=== PATIENT | female | born 1980 | race Two or more races ===

== ENCOUNTER 2024-03-11 14:55 | Emergency (ER) | payer MEDICAID, SELFPAY ==
[2024-03-11 15:42] VITALS: BP 157/89; PULSE 96; RESP 18; TEMP 37; O2SAT 95; BMI 27.1
--- NOTE | 2024-03-11 16:28 | EDNOTE_ITS ---
ED General RME/HPI General Chief complaint: General Adult/Misc Complain Stated complaint: NUMBNESS TO LEFT CHEEK POST PROCEDURE 3 WKG AGO Time Seen by Provider: 03/11/24 15:11 Arrival date/time: 03/11/24 14:55 Limitations: language barrier (Telemetry office services specialist utilized.) RME / HPI RME / HPI narrative: 44-year-old female presents with left sided cheek numbness x 3 days. She reports having a facelift procedure done in [place] x 3 weeks ago during which time they placed a thread from the bottom of her cheek to above her ear internally. Denies tingling, change in speech, visual changes, headache, fever, chills, redness at surgical site, discharge from surgical site. Denies facial droop. She is requesting that we remove the internal sutures at this time. Onset (ago): day(s) Location: face Radiation: non-radiation Severity: moderate Quality: other (Numbness.) Consistency: constant Associated symptoms: denies other symptoms Treatments prior to arrival: none Related Data Previous Rx's ?Medication ?Instructions ?Recorded cyclobenzaprine 10 mg tablet 10 mg PO TID #14 tabs 01/11/21 meloxicam 7.5 mg tablet 7.5 mg PO QDAY #10 tabs 01/11/21 alprazolam 0.5 mg tablet (Xanax) 0.5 mg PO BID PRN anxiety #10 tabs 03/02/23 tramadol 50 mg tablet 50 mg PO BID PRN pain #10 tabs 03/02/23 ibuprofen 800 mg tablet 800 mg PO Q8H PRN pain #14 tabs 03/11/24 prednisone 50 mg tablet 50 mg PO QDAY #5 tabs 03/12/24 valacyclovir 1 gram tablet 1,000 mg PO BID #10 tabs 03/12/24 (Valtrex) Allergies Allergy/AdvReac Type Severity Reaction Status Date / Time No Known Allergies Allergy Verified 03/21/24 14:53 Review of Systems Constitutional Constitutional: Denies excessive sweating, Denies fever(s) and Denies headache(s) Eyes Eyes: Denies blurry vision, Denies change in vision and Denies loss of vision ENT Ears, Nose, Mouth, and Throat: Denies abnormal hearing, Denies dizziness, Denies otalgia, Reports facial pain (numbness left side ), Denies headache(s), Denies mouth pain and Denies neck pain Cardiovascular Cardiovascular: Denies chest pain and Denies leg edema Respiratory Respiratory: Denies cough and Denies wheezing Gastrointestinal Gastrointestinal: Denies nausea and Denies vomiting Musculoskeletal Musculoskeletal: Denies back pain, Denies neck pain, Denies stiffness and Denies tingling Neurologic Neurologic: Denies abnormal hearing, Denies abnormal movements, Denies abnormal speech, Denies behavioral changes, Denies confusion, Denies dizziness, Denies headache(s), Denies lack of coordination, Denies loss of vision, Denies memory loss and Denies tingling Psychiatric Psychiatric: Denies behavioral changes, Denies confusion and Denies memory loss Endocrine Endocrine: Denies excessive sweating Allergic/Immunologic Allergic/Immunologic: Denies wheezing Past Medical History Past Medical History NEUROLOGIC: Negative Neurological Disorders CARDIAC: Negative Cardiac Disorders or Congestive Heart Failure RESPIRATORY: Negative Chronic Obstructive Pulmonary Disease (COPD) GASTROINTESTINAL: Negative Gastrointestinal Disorders or Colorectal Cancer GENITOURINARY: Negative Genitourinary Disorders, Renal Disease or Prostate Cancer REPRODUCTIVE: Negative Breast Cancer or Pelvic Inflammatory Disease MUSCULOSKELETAL: Positive Musculoskeletal Disorders, Arthritis and Fractures; Negative Bone Cancer ENDOCRINE: Negative Endocrine Disorders, Diabetes Mellitus Type 1 or Diabetes Mellitus Type 2 HEMATOLOGIC: Positive Blood Disorders and Leukemia PSYCHO/SOCIAL: Positive Anxiety OTHER HISTORY: Positive Hospitalization, Blood Transfusions, Chemotherapy and Cancer; Negative Autoimmune Disease, Developmental Delay, Blood Transfusion Reaction, Anesthesia Reactions, Organ Transplant, Radiation Therapy, MRSA, Chicken Pox, Measles, Mumps, Clostridium Difficile, Breast Cancer, Cervical Cancer, Colorectal Cancer, Lung Cancer, Ovarian Cancer or Prostate Cancer Family History FAMILY HISTORY: Positive Family Cancer; Negative Family Psychiatric Problems, Family Respiratory Disorders, Family Cardiac Disorders, Family Gastrointestinal Problems, Family Surgery or Family Anesthesia Reaction Surgical History SURGICAL: Negative Endocrine Surgery, Ear Surgery, Abdominal Surgery, Nephrectomy, Joint Replacement, Neurologic Surgery, Mastectomy, Section or Organ Transplant Social History SMOKING STATUS: Never smoker SECOND HAND EXPOSURE: No SUBSTANCE USE: does not use ED Exam General Limitations: Present language barrier (Telemetry office services specialist utilized.) General appearance: Present alert and in no apparent distress Head Head exam: Present atraumatic Eye Eye exam: Present normal appearance, PERRL and EOMI; Absent miosis, mydriasis or periorbital swelling ENT ENT exam: Present normal oropharynx, mucous membranes moist and TM's normal bilaterally Neck Neck exam: Present normal inspection, full ROM and trachea midline Chest Chest inspection: Present normal inspection and symmetric chest wall rise Respiratory Respiratory exam: Present normal lung sounds bilaterally; Absent respiratory distress or wheezes Cardiovascular Cardiovascular exam: Present regular rate, +S1 and +S2 Abdominal Exam Abdominal exam: Present soft; Absent distention Extremities Exam Extremities exam: Present normal inspection, full ROM and normal capillary refill Neurological Exam Neurological exam: Present alert, oriented X3 and normal gait; Absent motor sensory deficit Expanded Neurological Exam Patient oriented to: Present person, place and time Speech: Present fluid speech Cranial nerves: Normal: EOM function (II, III, IV, ), facial sensation (V), facial palsy (VII), spinal accessory function (XI) and tongue deviation (XII) Cerebellar function: Present normal gait Motor strength - LUE: 5/5 Motor strength - RUE: 5/5 Motor strength - LLE: 5/5 Motor strength - RLE: 5/5 Psychiatric Psychiatric exam: Present normal affect Skin Skin exam: Present warm, dry and normal color Course Quality Measures none Orders Category Date Time Status Ketorolac Inj [Toradol Inj] Med 03/11/24 16:30 Discontinued 30 mg IM X1 ONE Vital Signs Vital signs: Vital Signs Temperature 98.6 F 03/11/24 15:42 Pulse Rate 96 03/11/24 15:42 Respiratory Rate 18 03/11/24 15:42 Blood Pressure 157/89 H 03/11/24 15:42 Pulse Oximetry (%) 95 03/11/24 15:42 Oxygen Delivery Method Room Air 03/11/24 15:42 Pulse ox 95% on room air, within normal limits. [facility] Patient data External records reviewed:: [facility] [place] previous records Clinical information provided by:: patient Social determinants that could affect healthcare access:: none Patient has the following chronic illnesses:: None reported. How is presenting disease/condition affected by chronic disease/condition?: no chronic disease Evaluation data The following diagnostics were reviewed and interpreted by me:: other (specify) Lab and/or radiology exams considered but not ordered:: Considered not ordered. Interpretation Summary: Considered not ordered. Medications Medications considered but not ordered:: Rx given. Medication administrations:: Medication Administration History Discontinued Medications Ketorolac Tromethamine (Ketorolac Inj 60 Mg/2 Ml Vial) 30 mg IM X1 ONE Stop: 03/11/24 16:31 Last Admin: 03/11/24 16:45 Dose: 30 mg Documented By: LEOPOLDO Rx given. Consultations Consultation(s) initiated? (list below): No Diagnosis Differential Diagnosis ED Complaint MDM: CVA, postsurgical complication, Hickey's palsy Most likely diagnosis given after review of the tests above:: Postsurgical complication. Admission Indicated Admission indicated?: not indicated Explain why admission is indicated or not indicated:: Patient with stable vital signs and no neurodeficit on examination. Numbness is likely complication of facial surgery procedure, for which the patient needs to follow-up with her plastic surgeon. Vital signs reassuring that this is not a surgical site infection. Patient stable and appropriate for outpatient follow- up. Admission Request Was there a request for admission?: No Disposition Plan Disposition Plan: Discharge Discharge Attestation Discharge Attestation: The patient and all family members were given an opportunity to ask questions and understood the discharge instructions. Discharge instructions specifically effects, indications for sooner follow up or return to the emergency department, and the expected course of current diagnosis. Patient condition: Stable Medical Decision Making MDM Narrative MDM Narrative: 44-year-old female presents with left sided facial numbness x 3 weeks in the setting of recent facelift procedure done x 1 month ago in [place]. She reports she is unable to get in contact with her plastic surgeon at this time. Vital signs reassuring. No neurodeficits on examination but patient grimacing with apparent internal pulling when smiling on the left side. No decrease sensation and forehead creases intact bilateral forehead, pointing away from Hickey's palsy at this time therefore steroid treatment deferred at this time.. No facial drooping with no focal neurodeficits therefore CT head was not obtained. Vital signs stable therefore labs were not ordered given surgical site with no erythema or discharge so less concern for infection. This is very likely a complication of her surgery and she is requesting that we remove sutures, however I discussed with her extensively that her follow-up would need to be with the plastic surgeon so as not to complicate surgical site. Patient was given a shot of Toradol with some improvement in her left sided facial discomfort. Ultimately patient was discharged home with plan to follow-up with her plastic surgeon's office and ask for a local referral if she is unable to contact her surgeon. Patient stable at time of discharge. Differential Diagnosis Differential Diagnosis: CVA, postsurgical complication, Hickey's palsy Discharge Plan Plan Patient Disposition: HOME (Self Care) Disposition Comment: stable Prescriptions/Referrals Prescriptions/Med Rec: New ibuprofen 800 mg tablet 800 mg PO Q8H PRN (Reason: pain) Qty: 14 0RF No Action cyclobenzaprine 10 mg tablet 10 mg PO TID Qty: 14 0RF meloxicam 7.5 mg tablet 7.5 mg PO QDAY Qty: 10 0RF tramadol 50 mg tablet 50 mg PO BID PRN (Reason: pain) Qty: 10 0RF alprazolam [Xanax] 0.5 mg tablet 0.5 mg PO BID PRN (Reason: anxiety) Qty: 10 0RF valacyclovir [Valtrex] 1 gram tablet 1,000 mg PO BID Qty: 10 0RF prednisone 50 mg tablet 50 mg PO QDAY Qty: 5 0RF Problem List Clinical Impression: Facial discomfort Patient/Caregiver Discharge Instructions Other Activity Instructions:: Follow-up with plastic surgeon in [place] as discussed. Ask for referral to local plastic surgeon if he continues to be unavailable for the next several weeks. Take ibuprofen as needed for facial discomfort. Return to the ED if you develop fever, spreading redness, chills, nausea, difficulty breathing, or worsening or change of symptoms. Education Materials: Self-Care for Headaches Print Language: Bulgarian Stand Alone Forms: Leighann Award Info., Patient Portal Info Letter PA/[place]IDENT OF [place] Supervising Physician PA/[place]IDENT [place] Supervising Physician: Dr. Pritchard
[2024-03-11] MEDS: KETOROLAC INJ 60 MG/2 ML VIAL 30 MG IM (16:45)
== END 2024-03-11 17:53 | disposition home or self-care (01) ==
PROVIDERS: Emergency Provider Emergency Medicine; PCP Family Medicine
DX: R20.0 Anesthesia of skin (principal)
CPT/HCPCS: 96372; 99283; J1885

== ENCOUNTER 2024-03-12 18:48 | Emergency (ER) | payer MEDICAID, SELFPAY ==
[2024-03-12 19:02] VITALS: BP 157/80; PULSE 116; RESP 18; TEMP 37.2; O2SAT 96; BMI 24.9
--- NOTE | 2024-03-12 19:12 | XR_ITS ---
Examination: CT brain head without contrast. 2-D sagittal coronal reconstructions Date and time of exam:March 12, 2024 at 2032 hrs. Indications: Onset facial paralysis left-sided facial weakness left-sided facial numbness today CTDI: vol (mGy):47.3 DLP: (mGycm):918 Technique: Multiple CT axial sections of the brain have been obtained, 5 mm slice thickness. Contrast has not been administered. 2-D sagittal, coronal reconstructions have been obtained Low dose protocols were performed. One or more of the following dose reduction techniques were used; automated exposure control, adjustment of the mA and/or KV according to patient size, use of iterative reconstruction technique. Findings: No significant ventricular enlargement. Intra-axial or extra-axial hemorrhage density is not seen. No mass effect or midline shift Basal cisterns are not remarkable. Fourth ventricle is midline. Cranial vault intact. Impression: Negative for acute hemorrhage, mass effect or midline shift Brain MRI follow-up would best assess for demyelinating disease, acute ischemic change
[2024-03-12 20:21] LABS: Collection Type, Urine Clean Catch
[2024-03-12 20:43] LABS: Bacteria,Urine Rare; Bilirubin,Urine Negative (Negative); Blood,Urine Negative (Negative); Clarity,Urine Clear (Clear/Hazy); Color,Urine Lt-Yellow (Lt Yel-Yel); Glucose, Urine 4+ (Negative); Ketones,Urine Trace (Negative); Leukocyte Esterase,Urine Positive (Negative); Nitrite,Urine Negative (Negative); Protein,Urine Trace (Neg - Trace); RBC,Urine 3 /hpf (0-3); Squamous Epithelial Cell,Urine 5 /hpf (0-5); Urobilinogen,Urine Negative mg/dL (0.0-1.0); WBC,Urine 8 /hpf (0-5)
[2024-03-12 20:44] LABS: HCG Qualitative,Urine Negative
--- NOTE | 2024-03-12 21:58 | PD.EDNEURO ---
Neuro Symptoms Deficit-RME/HPI General Chief Complaint: Neuro Symptoms/Deficit Stated Complaint: LEFT SIDED FACIAL PARALYSIS SINCE 03/12/24 Time Seen by Provider: 03/12/24 19:00 Arrival date/time: 03/12/24 18:48 RME / HPI RME / HPI Narrative: This section includes all my notes and documentations, including HPI, PE, and ED course. Sanford Irvin MD HPI: 44-year-old female here with about a week history of left-sided facial weakness and numbness and tingling. Slight headache and dizziness. No speech or visual impairment. No loss of power in arms or legs. No chest pain or shortness of breath. No other complaints. ROS: Respiratory: negative except as documented in HPI. Gastrointestinal: negative except as documented in HPI. Genitourinary: negative except as documented in HPI. Musculoskeletal: negative except as documented in HPI. Skin: negative except as documented in HPI. Neurological: negative except as documented in HPI. Physical Exam: General: Alert and oriented. Left facial droop noted, including the forehead. Eyes: Conjunctivae and lids clear. EOMI. PERRL. ENT: No nasal congestion. Pharynx normal. Tympanic membrane normal bilaterally. Neck: Supple. No carotid bruit. No JVD. Heart: RRR. Lungs: No respiratory distress. Good air movement. No rhonchi, wheezing, rales. Skin: Warm and dry. Neuro: Alert and oriented X 3. Cranial Nerves II-XII grossly intact. No peripheral motor deficits. I reviewed all diagnostic test results. My review of the head CT report is no acute findings. Urine negative. Normal UA. At this point, diagnoses include Hickey's palsy. Treatment here included oral prednisone and oral acyclovir. Recommended supportive care. Based on my best medical judgment, made decision no further evaluation or treatment indicated at this time. Patient understands and agrees to the discharge instructions customized and printed, see below. Discharge Instructions from Dr. Irvin: --After evaluation, there is no stroke.? 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 --Hickey's palsy is Inflammation of the facial nerves one side which can cause paralysis and/or numbness/tingling.? --The cause of the nerve inflammation is not known.? Virus infection and stress are possibilities. --Take Prednisone and Valtrex as prescribed.? This can shorten the course. --See a private doctor on 03/13/2024. Ask to help until you are completely better. If needed, ask for help with more investigation not available here. Such as MRI imaging of the brain and referral to see neurologist. --Seek immediate medical care with speech impairment, loss of power in arms or legs, or with any concerns.? Sanford Irvin MD Related Data Previous Rx's ?Medication ?Instructions ?Recorded cyclobenzaprine 10 mg tablet 10 mg PO TID #14 tabs 01/11/21 meloxicam 7.5 mg tablet 7.5 mg PO QDAY #10 tabs 01/11/21 alprazolam 0.5 mg tablet (Xanax) 0.5 mg PO BID PRN anxiety #10 tabs 03/02/23 tramadol 50 mg tablet 50 mg PO BID PRN pain #10 tabs 03/02/23 ibuprofen 800 mg tablet 800 mg PO Q8H PRN pain #14 tabs 03/11/24 prednisone 50 mg tablet 50 mg PO QDAY #5 tabs 03/12/24 valacyclovir 1 gram tablet 1,000 mg PO BID #10 tabs 03/12/24 (Valtrex) Allergies Allergy/AdvReac Type Severity Reaction Status Date / Time No Known Allergies Allergy Verified 03/12/24 18:51 Course Quality Measures none Orders Category Date Time Status CT head/brain wo con Stat Exams 03/12/24 19:12 Completed HCG Qualitative,Urine Stat Lab 03/12/24 19:14 Completed UA [Urinalysis] Stat Lab 03/12/24 19:14 Completed Acyclovir [Zovirax] Med 03/12/24 21:20 Discontinued 800 mg PO X1 ONE predniSONE Med 03/12/24 21:20 Discontinued 60 mg PO X1 ONE Vital Signs Vital signs: Vital Signs Temperature 98.9 F 03/12/24 19:02 Pulse Rate 116 H 03/12/24 19:02 Respiratory Rate 18 03/12/24 19:02 Blood Pressure 157/80 H 03/12/24 19:02 Pulse Oximetry (%) 96 03/12/24 19:02 Oxygen Delivery Method Room Air 03/12/24 19:02 Neuro Symptoms / Deficit Patient data External records reviewed:: None Clinical information provided by:: patient Social determinants that could affect healthcare access:: none Patient has the following chronic illnesses:: None How is presenting disease/condition affected by chronic disease/condition?: no chronic disease Evaluation data The following diagnostics were reviewed and interpreted by me:: lab results and radiology exam(s) Lab and/or radiology exams considered but not ordered:: None Interpretation Summary: Hickye's palsy Medications / Prescriptions Medications or Prescriptions considered but not ordered:: None Medication administrations:: Medication Administration History Discontinued Medications Acyclovir (Acyclovir 800 Mg Tablet) 800 mg PO X1 ONE Stop: 03/12/24 21:21 Prednisone (Prednisone 20 Mg Tablet) 60 mg PO X1 ONE Stop: 03/12/24 21:21 Prednisone acyclovir Consultations Consultation(s) initiated? (list below): No Diagnosis Neuro Differential Diagnosis: convulsions, subarachnoid hemorrhage, cerebrovascular accident and transient cerebral ischemia Most likely diagnosis given after review of the tests above:: Hickey's palsy Admission Indicated Admission indicated?: not indicated Explain why admission is indicated or not indicated:: Admission criteria not met Admission Request Was there a request for admission?: No Disposition Plan Disposition Plan: Discharge Discharge Attestation Discharge Attestation: The patient and all family members were given an opportunity to ask questions and understood the discharge instructions. Discharge instructions specifically effects, indications for sooner follow up or return to the emergency department, and the expected course of current diagnosis. Patient condition: Stable Discharge Plan Plan Patient Disposition: HOME (Self Care) Prescriptions/Referrals Prescriptions/Med Rec: New valacyclovir [Valtrex] 1 gram tablet 1,000 mg PO BID Qty: 10 0RF prednisone 50 mg tablet 50 mg PO QDAY Qty: 5 0RF No Action cyclobenzaprine 10 mg tablet 10 mg PO TID Qty: 14 0RF meloxicam 7.5 mg tablet 7.5 mg PO QDAY Qty: 10 0RF tramadol 50 mg tablet 50 mg PO BID PRN (Reason: pain) Qty: 10 0RF alprazolam [Xanax] 0.5 mg tablet 0.5 mg PO BID PRN (Reason: anxiety) Qty: 10 0RF ibuprofen 800 mg tablet 800 mg PO Q8H PRN (Reason: pain) Qty: 14 0RF Referrals: Lynne Justice PA-C [Primary Care Provider] - In 1 week Problem List Clinical Impression: Hickey's palsy Patient/Caregiver Discharge Instructions Discharge Activity: activity as tolerated Education Materials: ED Hickey's Palsy Additional Instructions: Discharge Instructions from Dr. Irvin: --After evaluation, there is no stroke.? 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 --Hickey's palsy is Inflammation of the facial nerves one side which can cause paralysis and/or numbness/tingling.? --The cause of the nerve inflammation is not known.? Virus infection and stress are possibilities. --Take Prednisone and Valtrex as prescribed.? This can shorten the course. --See a private doctor on 03/13/2024. Ask to help until you are completely better. If needed, ask for help with more investigation not available here. Such as MRI imaging of the brain and referral to see neurologist. --Seek immediate medical care with speech impairment, loss of power in arms or legs, or with any concerns.? Print Language: [place] Stand Alone Forms: Leighann Award Info., Work/School Release, Patient Portal Info Letter
[2024-03-12] MEDS: predniSONE 20 MG TABLET 60 MG PO (22:12)
[2024-03-12] MEDS: ACYCLOVIR 800 MG TABLET PO (22:12)
== END 2024-03-12 22:15 | disposition home or self-care (01) ==
PROVIDERS: Emergency Provider Emergency Medicine; PCP Physician Assistant
DX: G51.0 Bell's palsy (principal)
CPT/HCPCS: 70450; 81001; 81025; 99284; J7512; A9270

== ENCOUNTER 2024-03-21 14:51 | Emergency (ER) | payer MEDICAID, SELFPAY ==
[2024-03-21 15:10] VITALS: BP 139/86; PULSE 88; RESP 18; TEMP 36.9; O2SAT 99; BMI 28.1
--- NOTE | 2024-03-21 16:49 | PD.EDHA ---
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 presents emerged department complaints of headache and facial palsy Limitations: no limitations Related Data Previous Rx's ?Medication ?Instructions ?Recorded cyclobenzaprine 10 mg tablet 10 mg PO TID #14 tabs 01/11/21 meloxicam 7.5 mg tablet 7.5 mg PO QDAY #10 tabs 01/11/21 alprazolam 0.5 mg tablet (Xanax) 0.5 mg PO BID PRN anxiety #10 tabs 03/02/23 tramadol 50 mg tablet 50 mg PO BID PRN pain #10 tabs 03/02/23 ibuprofen 800 mg tablet 800 mg PO Q8H PRN pain #14 tabs 03/11/24 prednisone 50 mg tablet 50 mg PO QDAY #5 tabs 03/12/24 valacyclovir 1 gram tablet 1,000 mg PO BID #10 tabs 03/12/24 (Valtrex) ketorolac 10 mg tablet 10 mg PO TID PRN pain 3 days #10 03/21/24 tabs Allergies Allergy/AdvReac Type Severity Reaction Status Date / Time No Known Allergies Allergy Verified 03/21/24 14:53 Review of Systems Review of Systems Systems Reviewed: All systems reviewed, normal except as documented Constitutional Constitutional: Reports system reviewed and no additional complaints, except as documented, Denies fever(s) and Reports headache(s) Eyes Eyes: Reports system reviewed and no additional complaints, except as documented and Denies blurry vision ENT Ears, Nose, Mouth, and Throat: Reports system reviewed and no additional complaints, except as documented and Reports headache(s) Cardiovascular Cardiovascular: Reports system reviewed and no additional complaints, except as documented, Denies chest pain and Denies dyspnea Respiratory Respiratory: Reports system reviewed and no additional complaints, except as documented, Denies chest congestion, Denies cough and Denies dyspnea Gastrointestinal Gastrointestinal: Reports system reviewed and no additional complaints, except as documented and Denies abdominal pain Musculoskeletal Musculoskeletal: Denies abnormal gait Integumentary/Breasts Skin/Breast: Reports system reviewed and no additional complaints, except as documented and Denies rash Neurologic Neurologic: Reports system reviewed and no additional complaints, except as documented, Reports as per HPI, Denies abnormal gait, Reports headache(s) and Reports other (Left-sided facial palsy) Past Medical History Past Medical History NEUROLOGIC: Negative Neurological Disorders CARDIAC: Negative Cardiac Disorders or Congestive Heart Failure RESPIRATORY: Negative Chronic Obstructive Pulmonary Disease (COPD) GASTROINTESTINAL: Negative Gastrointestinal Disorders or Colorectal Cancer GENITOURINARY: Negative Genitourinary Disorders, Renal Disease or Prostate Cancer REPRODUCTIVE: Negative Breast Cancer or Pelvic Inflammatory Disease MUSCULOSKELETAL: Positive Musculoskeletal Disorders, Arthritis and Fractures; Negative Bone Cancer ENDOCRINE: Negative Endocrine Disorders, Diabetes Mellitus Type 1 or Diabetes Mellitus Type 2 HEMATOLOGIC: Positive Blood Disorders and Leukemia PSYCHO/SOCIAL: Positive Anxiety OTHER HISTORY: Positive Hospitalization, Blood Transfusions, Chemotherapy and Cancer; Negative Autoimmune Disease, Developmental Delay, Blood Transfusion Reaction, Anesthesia Reactions, Organ Transplant, Radiation Therapy, MRSA, Chicken Pox, Measles, Mumps, Clostridium Difficile, Breast Cancer, Cervical Cancer, Colorectal Cancer, Lung Cancer, Ovarian Cancer or Prostate Cancer Family History FAMILY HISTORY: Positive Family Cancer; Negative Family Psychiatric Problems, Family Respiratory Disorders, Family Cardiac Disorders, Family Gastrointestinal Problems, Family Surgery or Family Anesthesia Reaction Surgical History SURGICAL: Negative Endocrine Surgery, Ear Surgery, Abdominal Surgery, Nephrectomy, Joint Replacement, Neurologic Surgery, Mastectomy, Section or Organ Transplant Social History SMOKING STATUS: Never smoker SECOND HAND EXPOSURE: No SUBSTANCE USE: does not use ED Exam General Limitations: Present no limitations General appearance: Present alert and in no apparent distress Head Head exam: Present atraumatic, normocephalic and normal inspection Eye Eye exam: Present normal appearance, PERRL and EOMI ENT ENT exam: Present normal exam, normal oropharynx and mucous membranes moist Neck Neck exam: Present normal inspection, full ROM and trachea midline Chest Chest inspection: Present normal inspection and symmetric chest wall rise Respiratory Respiratory exam: Present normal lung sounds bilaterally Cardiovascular Cardiovascular exam: Present regular rate, normal rhythm and normal heart sounds Abdominal Exam Abdominal exam: Present soft and normal bowel sounds Extremities Exam Extremities exam: Present normal inspection and full ROM Back Exam Back exam: Present normal inspection and full ROM Neurological Exam Neurological exam: Present alert, oriented X3, CN II-XII intact, normal gait and reflexes normal; Absent motor sensory deficit Psychiatric Psychiatric exam: Present other (Stress); Absent depressed, agitated, homicidal ideation or suicidal ideation Skin Skin exam: Present warm, dry, intact and normal color; Absent rash Course Quality Measures none Orders Category Date Time Status Consult to Neurology / Tele-Neurology Stat Cons 03/21/24 15:30 Active Ketorolac Inj [Toradol Inj] Med 03/21/24 16:40 Discontinued 30 mg IM X1 ONE Vital Signs Vital signs: Vital Signs Temperature 98.5 F 03/21/24 15:10 Pulse Rate 88 03/21/24 15:10 Respiratory Rate 18 03/21/24 15:10 Blood Pressure 139/86 H 03/21/24 15:10 Pulse Oximetry (%) 99 03/21/24 15:10 Oxygen Delivery Method Room Air 03/21/24 15:10 O2 saturation 99% room air within normal limits Headache MDM Narrative MDM Narrative:: 44-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 De Jesus was completed with patient felt the patient could be given Toradol and follow-up on an outpatient basis no further suggestions were made at this point she reports she can continue taking her gabapentin at home Patient discharged home in no distress to follow-up with primary care doctor in the next 24 to 48 hours and for any worsening symptoms to return to the ER immediately Patient data External records reviewed:: [facility] previous records Clinical information provided by:: patient Social determinants that could affect healthcare access:: none Patient has the following chronic illnesses:: See history How is presenting disease/condition affected by chronic disease/condition?: uneffected by Evaluation data The following diagnostics were reviewed and interpreted by me:: other (specify) (N/A) Lab and/or radiology exams considered but not ordered:: N/A Interpretation Summary: N/A Medications / Prescriptions Medications or Prescriptions considered but not ordered:: Given Medication administrations:: Medication Administration History Discontinued Medications Ketorolac Tromethamine (Ketorolac Inj 30 Mg/Ml Vial) 30 mg IM X1 ONE Stop: 03/21/24 16:41 Last Admin: 03/21/24 16:50 Dose: 30 mg Documented By: OA Given Consultations Consultation(s) initiated? (list below): Yes Consultation #1 (Physician, Specialty, Details): Dr De Jesus Diagnosis Differential diagnosis headache: migraine, tension headache, subarachnoid hemorrhage and headache Most likely diagnosis given after review of the tests above:: Headache Admission Indicated Admission indicated?: not indicated Admission Request Was there a request for admission?: No Disposition Plan Disposition Plan: Discharge Discharge Attestation Discharge Attestation: The patient and all family members were given an opportunity to ask questions and understood the discharge instructions. Discharge instructions specifically effects, indications for sooner follow up or return to the emergency department, and the expected course of current diagnosis. Patient condition: Stable Discharge Plan Plan Patient Disposition: HOME (Self Care) Disposition Comment: Stable Prescriptions/Referrals Prescriptions/Med Rec: New ketorolac 10 mg tablet 10 mg PO TID PRN (Reason: pain) 3 Days Qty: 10 0RF No Action cyclobenzaprine 10 mg tablet 10 mg PO TID Qty: 14 0RF meloxicam 7.5 mg tablet 7.5 mg PO QDAY Qty: 10 0RF tramadol 50 mg tablet 50 mg PO BID PRN (Reason: pain) Qty: 10 0RF alprazolam [Xanax] 0.5 mg tablet 0.5 mg PO BID PRN (Reason: anxiety) Qty: 10 0RF ibuprofen 800 mg tablet 800 mg PO Q8H PRN (Reason: pain) Qty: 14 0RF valacyclovir [Valtrex] 1 gram tablet 1,000 mg PO BID Qty: 10 0RF prednisone 50 mg tablet 50 mg PO QDAY Qty: 5 0RF Problem List Clinical Impression: Hickey's palsy Patient/Caregiver Discharge Instructions Education Materials: ED Hickey's Palsy Additional Instructions: Please follow up with your primary care doctor in the next 24-48hrs for any worsening symptoms return here immediately Print Language: Kenyan Stand Alone Forms: Leighann Award Info., Patient Portal Info Letter MD Attestation Attestation The patient was seen by the midlevel practitioner. I, the co-signing physician, was present during the entire ER visit. While I did not physically examine the patient, I was available for consultation as needed.
[2024-03-21] MEDS: KETOROLAC INJ 30 MG/ML VIAL IM (16:50)
--- NOTE | 2024-03-21 23:53 | PD.VCONSULT1 ---
Telemedicine visit statement This visit was conducted with the use of interactive audio and video telecommunications system that permits real time communication between the patient and the provider. Patient's verbal consent for virtual visit was obtained on 03/21/24 at 2353. Meds Home Medications and Allergies Allergies Allergy/AdvReac Type Severity Reaction Status Date / Time No Known Allergies Allergy Verified 03/21/24 14:53 Virtual exam Vital Signs Temp Pulse Resp BP Pulse Ox O2 Del Method 98.5 F 88 18 139/86 H 99 Room Air 03/21/24 15:10 03/21/24 15:10 03/21/24 15:10 03/21/24 15:10 03/21/24 15:10 03/21/24 15:10
== END 2024-03-21 17:23 | disposition home or self-care (01) ==
PROVIDERS: Emergency Provider Emergency Medicine; PCP Family Medicine
DX: G51.0 Bell's palsy (principal)
CPT/HCPCS: 96372; 99283; J1885

== ENCOUNTER 2024-05-24 09:24 | Emergency (ER) | payer MEDICAID, SELFPAY ==
--- NOTE | 2024-05-24 | XR_ITS ---
Examinations: MRI Brain without intravenous contrast. MRI brain with intravenous contrast MRI orbits without intravenous contrast MRI orbits with intravenous contrast MRA neck with intravenous contrast Date and time of exam: May 24, 2024 1521 hrs. Indications: Headaches deviations above the left eye upwards and left exophthalmos 5 days Technique: Multiple axial and sagittal images of the brain orbits have been obtained Siemens high-resolution 1.5 Cyndi short bore scanner is utilized. Sagittal sections, T1-weighted, TR 500, TE 14 Axial sections proton density and T2-weighted, TR 3,000, TE 34, TR 3,000, TE 91 Inversion recovery axial images, TR 9,260, TE 111, TI 2,500 Diffusion weighted images, axial sections, TR 4,800, TE 128, B value 1,000 Axial sections, ADC map, TR 4,800, TE 128. Contrast images have been obtained post intravenous 14 cc Gadolinium. T1-weighted axial and coronal images post contrast have been obtained. Findings: Very limited axial coronal sequences Ventricles are not enlarged No mass effect upon the ventricular system Diffusion-weighted images demonstrate no focus of restricted diffusion Left exophthalmos although no retro-orbital lesion Postcontrast images demonstrates no abnormal enhancing optic globe or retro-orbital lesions The abdominal musculature is not thickened The pituitary is not enlarged There is no disruption of the optic chiasm There is abnormal left para cavernous enhancement coronal image 22 axial image 7 measuring up to 9 mm with enhancement along the anterior-inferior margin of the left temporal lobe Impression: This is a very incomplete MRI brain orbits study Abnormal left para cavernous enhancement which extends along the anterior-inferior margin of the left temporal lobe, differential would include lymphoma, Hodgkin's disease, early meningioma, metastatic tumor Strongly recommend complete brain MRI MRA pre and post contrast follow-up
[2024-05-24 09:42] VITALS: BP 136/93; PULSE 100; RESP 18; TEMP 37.2; O2SAT 96; BMI 29.9
--- NOTE | 2024-05-24 09:54 | EDRME_ITS ---
Rapid Medical Screening Exam [facility] Arrival date/time: 05/24/24 09:24 44-year-old female with no known medical history presents to the emergency room with a chief complaint of pressure and pain to the left eye x 5 days. Patient was seen by her primary care provider and sent to the emergency room to rule out an optic nerve compression. Patient has been dealing with Hickey's palsy for the last 2 months and states she closes her eyes and uses lubrication daily. I have greeted and performed a focused initial assessment of this patient. A comprehensive ED assessment and evaluation of the patient, analysis of all test results, and completion of the medical decision making process will be conducted by additional ED providers. Chief Complaint: Eye Problems Vital signs: Vital Signs Temperature 98.9 F 05/24/24 09:42 Pulse Rate 100 05/24/24 09:42 Respiratory Rate 18 05/24/24 09:42 Blood Pressure 136/93 H 05/24/24 09:42 Pulse Oximetry (%) 96 05/24/24 09:42 Oxygen Delivery Method Room Air 05/24/24 09:42 Vital signs reviewed by provider: Yes
[2024-05-24 10:42] LABS: Basophils % (Auto) 0 % (0-2.5); Eosinophils # (Auto) 0.1 Thou/mm3 (0.0-0.5); Eosinophils % (Auto) 2 % (0-10); Hematocrit 39.9 % (36.0-46.0); Hemoglobin 13.4 g/dL (12.0-16.0); Immature Granulocytes % (Auto) 1 % (0-0); Immature Granulocytes Auto 0.04 Thou/mm3 (0.00-0.00); Lymphocytes % (Auto) 26 % (10-50); Mean Corpuscular HGB Conc 33.6 g/dl (31.0-37.0); Mean Corpuscular Hemoglobin 32.5 pg (25.0-35.0); Mean Corpuscular Volume 97 fL (80-100); Monocytes # (Auto) 0.4 Thou/mm3 (0.0-0.8); Monocytes % (Auto) 5 % (0-12); Neutrophils # (Auto) 5.2 Thou/mm3 (1.8-7.7); Neutrophils % (Auto) 67 % (37-80); Nucleated Red Blood Cell % 0 /100 WBC (0); Platelet Count 349 Thou/mm3 (140-440); RDW Standard Deviation 49.4 fL (36.4-46.3); Red Blood Count 4.12 Miln/mm3 (4.00-5.20); White Blood Count 7.7 Thou/mm3 (3.6-11.0)
[2024-05-24 11:01] LABS: Alanine Aminotransferase 18 U/L (10-49); Albumin, Serum 4.5 gm/dL (3.5-5.0); Albumin/Globulin Ratio 1.4 (1.2-2.2); Alkaline Phosphatase 73 U/L (46-116); Anion Gap 7 (7-16); Aspartate Amino Transferase 19 U/L (0-34); BUN/Creatinine Ratio 10 Ratio (12-20); Bilirubin,Total 0.4 mg/dL (0.3-1.2); Blood Urea Nitrogen 11 mg/dL (9-23); Calcium 9.8 mg/dL (8.3-10.6); Calcium (Corrected) 9.8 mg/dL (8.5-10.1); Carbon Dioxide 30.6 mMol/L (20.0-31.0); Chloride 106 mMol/L (98-107); Creatinine (Component) 1.1 mg/dL (0.6-1.3); Estimated Creatinine Clearance 60.3 mL/min (>60); Free T4 (Free Thyroxine) 1.12 ng/dL (0.89-1.76); Globulin 3.2 gm/dL (2.3-3.5); Glucose 104 mg/dL (74-106); Osmolality,Calculated 286 (275-295); Potassium 4.2 mMol/L (3.4-5.1); Sodium 144 mMol/L (136-145); Thyroid Stimulating Hormone 2.74 uIU/mL (0.55-4.78); Total Protein 7.7 gm/dL (5.7-8.2); eGFR > 60 See Note
[2024-05-24 14:23] VITALS: BP 142/92; PULSE 82; RESP 16; TEMP 36.9; O2SAT 97
--- NOTE | 2024-05-24 14:29 | EDNOTE_ITS ---
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 Patient was seen by her primary care provider and sent to the emergency room to rule out an optic nerve compression. Patient has been dealing with Hickey's palsy for the last 2 months and states she closes her eyes and uses lubrication daily. Denies any other complaints. Related Data Previous Rx's ?Medication ?Instructions ?Recorded cyclobenzaprine 10 mg tablet 10 mg PO TID #14 tabs meloxicam 7.5 mg tablet 7.5 mg PO QDAY #10 tabs 12/18 10/06 alprazolam 0.5 mg tablet (Xanax) 0.5 mg PO BID PRN anx iety #10 tabs 03/02/23 tramadol 50 mg tablet 50 mg PO BID PRN pain #10 ta bs 03/02/23 ibuprofen 800 mg tablet 800 mg PO Q8H PRN pain #14 t abs 03/11/24 prednisone 50 mg tablet 50 mg PO QDAY #5 tabs valacyclovir 1 gram tablet 1,000 mg PO BID #10 tabs (Valtrex) Allergies Allergy/AdvReac Type Severity Reaction Status Date / Time No Known Allergies Allergy Verified 03/21/24 14:53 Review of Systems Review of Systems Narrative Review of Systems: Review of system reviewed and within normal limits except mentioned in HPI ED Exam Narrative Physical exam: VITAL SIGNS: Reviewed. GENERAL APPEARANCE: Alert and interactive, follows commands, no acute distress, HEAD AND FACE: Non-traumatic. ENT: PERRL, pink conjunctivitis, eyelid no trauma, left eye is more exopthalamic than the left eye. Left eye ptosis noted, mucous membrane moist. NECK: Supple, nontender, no nuchal rigidity. CHEST: No tenderness, no crepitus, no paradoxical movement, no retractions. LUNGS: Clear, well ventilated, symmetric, no rales, no wheezing, no ronchi, no stridor, good breath sounds bilaterally. HEART: Regular rate, regular rhythm, no murmur, no gallops. ABDOMEN: Soft, positive bowel sounds, nondistended, no guarding, nontender, no rebound, no masses, RECTAL: Deferred. GENITAL: Deferred. NEUROLOGICAL: Gross motor function intact sensory function intact, Appropriate for age. MUSCULOSKELETAL: low back nontender, full range of motion. EXTREMITIES: Nontender, full range of motion. SKIN: Color pink, dry, no rash, no lacerations, no abrasions, no contusions. LYMPHATICS: Deferred. Course Quality Measures none Orders Category Date Time Status MRI Screening NOW Care 05/24/24 09:52 Active Tonometer to Bedside X1 Care 05/24/24 09:53 Active Visual Acuity X1 Care 05/24/24 09:53 Active MR head & orbits w/wo con Stat Exams 05/24/24 Completed CBC Stat Lab 05/24/24 10:24 Completed CMP [Comprehensive Metabolic Panel] Stat Lab 05/24/24 10:24 Completed Free T4 (Free Thyroxine) Stat Lab 05/24/24 10:24 Completed HCG Qualitative,Urine Stat Lab 05/24/24 18:19 Completed TSH [Thyroid Stimulating Hormone] Stat Lab 05/24/24 10:24 Completed Vital Signs Vital signs: Vital Signs Temperature 98.9 F 05/24/24 09:42 Pulse Rate 100 05/24/24 09:42 Respiratory Rate 18 05/24/24 09:42 Blood Pressure 136/93 H 05/24/24 09:42 Pulse Oximetry (%) 96 05/24/24 09:42 Oxygen Delivery Method Room Air 05/24/24 09:42 Eye MDM Narrative MDM Narrative:: 44-year-old female with no known medical history except for leukemia 2003, had a chemotherapy up to 2005 however lost to follow-up presents to the emergency room with a chief complaint of pressure and pain to the left eye x 5 days. Patient was seen by her primary care provider and sent to the emergency room to rule out an optic nerve compression. Patient has been dealing with Hickey's palsy for the last 2 months and states she closes her eyes and uses lubrication daily. Denies any other complaints. MRI of your brain showed This is a very incomplete MRI brain orbits study Abnormal left para cavernous enhancement which extends along the anterior-inferior margin of the left temporal lobe, differential would include lymphoma, Hodgkin's disease, early meningioma, metastatic tumor Strongly recommend complete brain MRI MRA pre and post contrast follow-up Results discussed strongly with the patient and advised her to follow-up closely with PCP tomorrow per referral to cancer specialist for further management. Patient is agreeable to plan. Patient data External records reviewed:: None Clinical information provided by:: none Social determinants that could affect healthcare access:: none Patient has the following chronic illnesses:: None How is presenting disease/condition affected by chronic disease/condition?: no chronic disease Evaluation data The following diagnostics were reviewed and interpreted by me:: lab results Lab and/or radiology exams considered but not ordered:: None Interpretation Summary: See results MDM Medications / Prescriptions Medications or Prescriptions considered but not ordered:: None Medication administrations:: None Consultations Consultation(s) initiated? (list below): No Diagnosis Eye Problem Differential Diagnosis: conjunctivitis, periorbital cellulitis and other (Intracranial tumor, exophthalmos) Most likely diagnosis given after review of the tests above:: Exophthalmos, suspect intracranial pathology Admission Indicated Admission indicated?: not indicated Explain why admission is indicated or not indicated:: Stable Admission Request Was there a request for admission?: No Disposition Plan Disposition Plan: Discharge Discharge Attestation Discharge Attestation: The patient was given an opportunity to ask questions and understood the discharge instructions. Discharge instructions specifically effects, indications for sooner follow up or return to the emergency department, and the expected course of current diagnosis. Patient condition: Stable Discharge Plan Plan Patient Disposition: HOME (Self Care) Disposition Comment: Stable Prescriptions/Referrals Prescriptions/Med Rec: No Action cyclobenzaprine 10 mg tablet 10 mg PO TID Qty: 14 0RF meloxicam 7.5 mg tablet 7.5 mg PO QDAY Qty: 10 0RF tramadol 50 mg tablet 50 mg PO BID PRN (Reason: pain) Qty: 10 0RF alprazolam [Xanax] 0.5 mg tablet 0.5 mg PO BID PRN (Reason: anxiety) Qty: 10 0RF ibuprofen 800 mg tablet 800 mg PO Q8H PRN (Reason: pain) Qty: 14 0RF valacyclovir [Valtrex] 1 gram tablet 1,000 mg PO BID Qty: 10 0RF prednisone 50 mg tablet 50 mg PO QDAY Qty: 5 0RF Referrals: Quincy Robertson MD [Primary Care Provider] - In 1 week Problem List Clinical Impression: Exophthalmos, unspecified Patient/Caregiver Discharge Instructions Discharge Activity: activity as tolerated Education Materials: What Is Non-Hodgkin Lymphoma Additional Instructions: Follow-up with your PCP and asked for referral to cancer specialist for further evaluation regarding the possible cause of your exophthalmos. Your MRIs today showed possible lymphoma, Hodgkin's disease, early meningioma, metastatic tumor. Make sure you see your PCP tomorrow morning. Print Language: Swedish Stand Alone Forms: Leighann Award Info., Patient Portal Info Letter PA/RETAIL MARKETING COORDINATOR Supervising Physician PA/RETAIL MARKETING COORDINATOR Supervising Physician: MD Aguilar
[2024-05-24 19:01] LABS: HCG Qualitative,Urine Negative
== END 2024-05-24 20:19 | disposition home or self-care (01) ==
PROVIDERS: Nurse Practitioner Family; Emergency Provider Emergency Medicine; PCP Family Medicine
DX: H05.20 Unspecified exophthalmos (principal); G51.0 Bell's palsy; Z85.6 Personal history of leukemia; Z92.21 Personal history of antineoplastic chemotherapy
CPT/HCPCS: 36415; 70543; 80053; 81025; 84439; 84443; 85025; 99285

== ENCOUNTER 2024-06-06 14:06 | Outpatient (RCR) | payer MEDICAID, SELFPAY ==
--- NOTE | 2024-06-06 16:37 | CTCCONSULT_ITS ---
[facility] [address] [place], [place] [address] Consultation Note Date: 06/06/2024 MR#: [id number] Name: BRYANT LEGGETT : 1980 Dx: Z85.6 Personal history of leukemia Attending physician. Renetta Bazan [employer] Reason for consultation. Patient with history of leukemia with left para cavernous/ temporal brain lesion referred to the cancer treatment center. 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 Patient has not had a follow-up since. Patient developed facial paralysis thought to be due to Hickey's palsy, came into the ER May 24, 2024 with complaints of pressure and pain in the left eye. Only limited and incomplete MRI brain orbit study was performed according to report. Abnormal left para cavernous enhancement which extended along the anterior inferior margin of the left temporal lobe with differentials being various types of tumors and malignancies. Patient has some residual left facial weakness and ptosis latter which actually improved. Patient now referred to the cancer treatment center. Patient also had CT of the brain 03/12/2024 without contrast which was unremarkable. Labs at ER 05/24/2024 unremarkable in terms of WBC hemoglobin platelets CMP thyroid functions. Past Medical History:1. Leukemia 20 years ago as noted in HPI.2. Arthritis Medications. Fluoxetine duloxetine trazodone gabapentin ibuprofen olanzapine prazosin. Allergies none to meds Family history. 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 CV: Chest clear to all station heart regular rate and rhythm ABD: Soft no organomegaly or tenderness EXT: No signs of clubbing or edema Assessment: 1. Left facial weakness, headaches left ocular pain. 2. MRI revealing left cavernous enhancement extending to left temporal lobe area 3. History of leukemia 20 years ago taking oral meds for 2 years reportedly in remission. 4. Shall order MRI MRA with and without contrast, along with common tumor markers. 5. Placed patient on tramadol 50 mg 3 times daily as needed 6. Shall see patient for follow-up in 2 months but told patient and son to take her back to the ER for any worsening of symptoms. Cc: [facility] Electronically signed by: Gerardo Irvin MD, DABR 06/06/2024 4:35 PM
== END 2024-06-15 23:59 | disposition home or self-care (01) ==
LOC: SCTC 14:06
PROVIDERS: PCP Registered Nurse General Practice; Referring Provider Registered Nurse General Practice; Visit Provider Radiology Therapeutic Radiology
DX: G93.89 Other specified disorders of brain (principal); R29.810 Facial weakness; R51.9 Headache, unspecified; H57.12 Ocular pain, left eye; Z85.6 Personal history of leukemia
CPT/HCPCS: 99213; G0463

== ENCOUNTER → 2024-06-07 | Outpatient (CLI) | payer MEDICAID, SELFPAY ==
[2024-06-07 14:48] LABS: HCG Qualitative,Urine Negative
--- NOTE | 2024-06-07 16:45 | XR_ITS ---
Examinations: MRA brain with intravenous contrast. Date and time of exam: June 07, 2024 1604 hours INDICATIONS: Headaches head pressure deviation of the left eye upwards left exophthalmos, diagnosis secondary malignant neoplasm of the brain, abnormal left para cavernous enhancement which extends along the anterior inferior margin of the left upper lobe on brain MRI May 24, 2024 Technique: Multiple axial and sagittal images of the brain have been obtained Siemens high-resolution 1.5 Cyndi short bore scanner is utilized. Contrast images have been obtained post intravenous 20 cc Gadolinium. . Angiographic images of neck and brain are obtained pre and post contrast. 3-D post processing performed, including brain, arterial maximum intensity projections Findings: Satisfactory filling of the petrous juxtasellar supraclinoid portions of the internal carotid arteries M1 segments middle cerebral arteries middle cerebral artery trifurcation vessels, pericallosal arteries, basilar artery posterior cerebral branches do fill No area of neovascularity IMPRESSION: No area of neovascularity, however, 4 vessel cerebral angiography would be superior in assessing for neovascularity
--- NOTE | 2024-06-07 16:45 | XR_ITS ---
Examinations: MRA brain without intravenous contrast. 3-D vascular reconstructions Date and time of exam: June 07, 2024 1604 hours Indication: Headaches deviation of the left eye upward bulging of the left eye outward, diagnosis secondary malignant neoplasm of the brain, abnormal left para cavernous enhancement which extends along the anterior-inferior margin of the left temporal lobe on brain MRI May 24, 2024 Technique: MRA brain carotid images without contrast obtained, including 3-D postprocessing, vascular maximum intensity projection images Findings: Filling of the petrous, juxtasellar supraclinoid portions both internal carotid arteries Filling of the intracranial vertebral arteries basilar artery and posterior cerebral artery branches No large vessel occlusions involving M1 segments middle cerebral arteries middle cerebral artery trifurcation vessels anterior cerebral arteries or posterior cerebral branches No neovasculature is depicted but 4 vessel cerebral angiography would better assess for neoplastic neovascularity IMPRESSION: Satisfactory filling of the cerebral vessels as above
== END | disposition home or self-care (01) ==
PROVIDERS: PCP Family Medicine; Referring Provider Radiology Therapeutic Radiology; Visit Provider Radiology Therapeutic Radiology
DX: C79.31 Secondary malignant neoplasm of brain (principal); Z32.00 Encounter for pregnancy test, result unknown
CPT/HCPCS: 70544; 70545; 81025; A9579

== ENCOUNTER 2024-08-08 13:09 | Outpatient (RCR) | payer MEDICAID, SELFPAY ==
--- NOTE | 2024-08-07 14:51 | CTCFLWUP_ITS ---
[facility] [address] [place], [place] [address] FOLLOW-UP NOTE Date: 08/07/2024 MR#: [id number] Name: BRYANT LEGGETT : 1980 Dx: Z85.6 Personal history of leukemia Patient was evaluated at [facility] neurosurgery department and reportedly they found an orbital blood clot for which she was prescribed Eliquis. They reportedly told her that only primary care provider needs to follow. Patient appears well with her vision improved with no facial asymmetry. I had her sign a release for records from [facility] and elected to give her 3 months follow-up to make sure all is going well. Electronically signed by: Gerardo Irvin M.D. 08/07/2024 2:48 PM
== END 2024-08-15 23:59 | disposition home or self-care (01) ==
LOC: SCTC 13:09
PROVIDERS: PCP Family Medicine; Referring Provider Family Medicine; Visit Provider Radiology Therapeutic Radiology
DX: Z08 Encounter for follow-up examination after completed treatment for malignant neoplasm (principal); Z85.6 Personal history of leukemia
CPT/HCPCS: 99213; 99424; 99425; G0463

== ENCOUNTER 2024-10-05 19:50 | Emergency (ER) | payer MEDICAID, SELFPAY ==
[2024-10-05 19:53] VITALS: BMI 28.0
[2024-10-05 20:21] VITALS: BP 143/83; PULSE 100; RESP 20; TEMP 36.7; O2SAT 97
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
[2024-10-05] MEDS: DIAZEPAM 5 MG TABLET 10 MG PO (21:18)
== END 2024-10-05 21:21 | disposition home or self-care (01) ==
LOC: SERX 21:23
PROVIDERS: Emergency Provider Emergency Medicine; PCP Family Medicine
DX: F41.9 Anxiety disorder, unspecified (principal); F43.0 Acute stress reaction
CPT/HCPCS: 99282; A9270

== ENCOUNTER 2024-10-07 01:30 | Emergency (ER) | payer MEDICAID, SELFPAY ==
[2024-10-07 01:35] VITALS: BMI 28.0
--- NOTE | 2024-10-07 02:17 | XR_ITS ---
Examination: PA and lateral chest 3 views TECHNIQUE: Upright PA and lateral chest 2 views Date and time: October 07, 2024 0246 hours Comparison August 30, 2016 INDICATIONS: Coughing chest pain today. FINDINGS: Normal heart size. Lungs are clear. The osseous structures are intact IMPRESSION: No active disease
--- NOTE | 2024-10-07 02:23 | EDNOTE_ITS ---
Upper Respiratory Inf. RME/HPI General Chief Complaint: Flu Like Symptoms Stated Complaint: COUGH HEADACHE CHEST THROAT PAIN Time Seen by Provider: 10/07/24 01:46 Arrival date/time: 10/07/24 01:30 RME / HPI RME / HPI Narrative: 44-year-old female presents with a 2-day history of nonproductive cough, headache, chills, body aches, runny nose and nasal congestion. She denies fever, nausea, vomiting, abdominal pain, but has had diarrhea. No others at home are ill with similar symptoms. Related Data Previous Rx's ?Medication ?Instructions ?Recorded cyclobenzaprine 10 mg tablet 10 mg PO TID #14 tabs meloxicam 7.5 mg tablet 7.5 mg PO QDAY #10 tabs 12/18 10/06 alprazolam 0.5 mg tablet (Xanax) 0.5 mg PO BID PRN anx iety #10 tabs 03/02/23 tramadol 50 mg tablet 50 mg PO BID PRN pain #10 ta bs 03/02/23 ibuprofen 800 mg tablet 800 mg PO Q8H PRN pain #14 t abs 03/11/24 prednisone 50 mg tablet 50 mg PO QDAY #5 tabs valacyclovir 1 gram tablet 1,000 mg PO BID #10 tabs (Valtrex) albuterol sulfate 90 mcg/actuation 2 puff inhalation Q 4H PRN 10/07/24 aerosol inhaler shortness of breath or wheez ing #8.5 grams benzonatate 200 mg capsule 200 mg PO TID PRN cough #15 caps 10/07/24 oseltamivir 75 mg capsule (Tamiflu) 75 mg PO BID 5 day s #10 caps 10/07/24 Allergies Allergy/AdvReac Type Severity Reaction Status Date / Time No Known Allergies Allergy Verified 10/07/24 01:43 Review of Systems Review of Systems Systems Reviewed: All systems reviewed, normal except as documented Past Medical History Past Medical History NEUROLOGIC: Negative Neurological Disorders CARDIAC: Negative Cardiac Disorders or Congestive Heart Failure RESPIRATORY: Negative Chronic Obstructive Pulmonary Disease (COPD) GASTROINTESTINAL: Negative Gastrointestinal Disorders or Colorectal Cancer GENITOURINARY: Negative Genitourinary Disorders, Renal Disease or Prostate Cancer REPRODUCTIVE: Negative Breast Cancer or Pelvic Inflammatory Disease MUSCULOSKELETAL: Positive Musculoskeletal Disorders, Arthritis and Fractures; Negative Bone Cancer ENDOCRINE: Negative Endocrine Disorders, Diabetes Mellitus Type 1 or Diabetes Mellitus Type 2 HEMATOLOGIC: Positive Blood Disorders and Leukemia PSYCHO/SOCIAL: Positive Anxiety OTHER HISTORY: Positive Hospitalization, Blood Transfusions, Chemotherapy and Cancer; Negative Autoimmune Disease, Developmental Delay, Blood Transfusion Reaction, Anesthesia Reactions, Organ Transplant, Radiation Therapy, MRSA, Chicken Pox, Measles, Mumps, Clostridium Difficile, Breast Cancer, Cervical Cancer, Colorectal Cancer, Lung Cancer, Ovarian Cancer or Prostate Cancer Family History FAMILY HISTORY: Positive Family Cancer; Negative Family Psychiatric Problems, Family Respiratory Disorders, Family Cardiac Disorders, Family Gastrointestinal Problems, Family Surgery or Family Anesthesia Reaction Surgical History SURGICAL: Negative Endocrine Surgery, Ear Surgery, Abdominal Surgery, Nephrectomy, Joint Replacement, Neurologic Surgery, Mastectomy, Section or Organ Transplant Social History SMOKING STATUS: Never smoker SECOND HAND EXPOSURE: No SUBSTANCE USE: does not use ED Exam Narrative Physical exam: Alert and oriented 44-year-old female, nontoxic-appearing, no acute distress. Active cough and runny nose. Lungs are clear, regular rate and rhythm without murmurs, TMs and pharynx are without erythema. Nares are with mild erythema and edema. Neck is supple, no adenopathy. Abdomen is soft and nontender. Course Course Course Narrative: COVID Swab negative, Rapid Strep Negative, Influenza A and B+ Chest x-ray ordered and pending. DuoNeb 3 mL ordered and pending. Quality Measures none Orders Category Date Time Status Bedside Influenza A&B Antigen Test NOW Care 10/07/24 02:17 Completed XR chest 2V Stat Exams 10/07/24 02:17 Taken COVID-19 Antigen (In-House) Stat Lab 10/07/24 02:36 Completed Strep A Rapid Stat Lab 10/07/24 02:36 Completed Albuterol/Ipratr Rt Rose [Duoneb Rt Rose] Med 10/07/24 02:18 Discontinued 3 ml INH X1 ONE Vital Signs Vital signs: Vital Signs Temperature 99.0 F 10/07/24 02:24 Pulse Rate 96 10/07/24 02:24 Respiratory Rate 19 10/07/24 02:24 Blood Pressure 123/82 10/07/24 02:24 Pulse Oximetry (%) 97 10/07/24 02:24 Oxygen Delivery Method Room Air 10/07/24 02:24 Upper Respiratory Infection MDM Narrative MDM Narrative:: 44-year-old female presents with a 2-day history of nonproductive cough, headache, chills, body aches, runny nose and nasal congestion. She denies fever, nausea, vomiting, abdominal pain, but has had diarrhea. No others at home are ill with similar symptoms. Alert and oriented 44-year-old female, nontoxic-appearing, no acute distress. Active cough and runny nose. Lungs are clear, regular rate and rhythm without murmurs, TMs and pharynx are without erythema. Nares are with mild erythema and edema. Neck is supple, no adenopathy. Abdomen is soft and nontender. COVID Swab negative, Rapid Strep Negative, Influenza A+ and B+ Chest x-ray ordered and pending. DuoNeb 3 mL given. Patient data External records reviewed:: None Clinical information provided by:: patient Social determinants that could affect healthcare access:: none Patient has the following chronic illnesses:: N/A How is presenting disease/condition affected by chronic disease/condition?: no chronic disease Evaluation data The following diagnostics were reviewed and interpreted by me:: lab results and radiology exam(s) Lab and/or radiology exams considered but not ordered:: N/A Interpretation Summary: COVID Swab negative, Rapid Strep Negative, Influenza A+ and B+ Chest x-ray ordered and pending. Medications / Prescriptions Medications or Prescriptions considered but not ordered:: N/A Medication administrations:: Medication Administration History Discontinued Medications Albuterol/Ipratropium (Albuterol/Ipratropium (Duoneb) Rt Rose 3 Ml Nebu) 3 ml INH X1 ONE Stop: 10/07/24 02:19 Last Admin: 10/07/24 05:00 Dose: 3 ml Documented By: GOYO Kaufman Consultations Consultation(s) initiated? (list below): No Diagnosis Upper Respiratory Differential Diagnosis: upper respiratory infection, sinusitis, viral infection, bronchitis, influenza and pharyngitis Most likely diagnosis given after review of the tests above:: Influenza A and influenza B Admission Indicated Admission indicated?: not indicated Explain why admission is indicated or not indicated:: Patient is stable for discharge Admission Request Was there a request for admission?: No Disposition Plan Disposition Plan: Discharge Discharge Attestation Discharge Attestation: The patient and all family members were given an opportunity to ask questions and understood the discharge instructions. Discharge instructions specifically effects, indications for sooner follow up or return to the emergency department, and the expected course of current diagnosis. Patient condition: Stable Discharge Plan Plan Patient Disposition: HOME (Self Care) Discharge Disposition comment: Stable and improved Prescriptions/Referrals Prescriptions/Med Rec: New oseltamivir [Tamiflu] 75 mg capsule 75 mg PO BID 5 Days Qty: 10 0RF albuterol sulfate 90 mcg/actuation HFA aerosol inhaler 2 puff inhalation Q4H PRN (Reason: shortness of breath or wheezing) Qty: 8.5 0RF benzonatate 200 mg capsule 200 mg PO TID PRN (Reason: cough) Qty: 15 0RF No Action cyclobenzaprine 10 mg tablet 10 mg PO TID Qty: 14 0RF meloxicam 7.5 mg tablet 7.5 mg PO QDAY Qty: 10 0RF tramadol 50 mg tablet 50 mg PO BID PRN (Reason: pain) Qty: 10 0RF alprazolam [Xanax] 0.5 mg tablet 0.5 mg PO BID PRN (Reason: anxiety) Qty: 10 0RF ibuprofen 800 mg tablet 800 mg PO Q8H PRN (Reason: pain) Qty: 14 0RF valacyclovir [Valtrex] 1 gram tablet 1,000 mg PO BID Qty: 10 0RF prednisone 50 mg tablet 50 mg PO QDAY Qty: 5 0RF Referrals: Quincy Robertson MD [Primary Care Provider] - In 1 week Problem List Clinical Impression: Influenza Patient/Caregiver Discharge Instructions Education Materials: ED Influenza (Adult) Additional Instructions: [place] los antibioticos margaret lo prescrito y complete elcurso a pesar de que puede sentirse major. Rupert un seguimiento con yoder medico de atencion primaria en 24 a 48 horas. Regresar al departamento de emergencias por cualquier sintoma nuevo o que empeore. Print Language: Hungarian Stand Alone Forms: Leighann Award Info., Patient Portal Info Letter PA/DUST COLLECTOR ATTENDANT Supervising Physician PA/DUST COLLECTOR ATTENDANT Supervising Physician: Dr Irvin
[2024-10-07 02:24] VITALS: BP 123/82; PULSE 96; RESP 19; TEMP 37.2; O2SAT 97
[2024-10-07 03:25] LABS: COVID-19 Antigen (In-House) Negative (Negative)
[2024-10-07 03:26] LABS: Strep A Rapid Negative (Negative)
[2024-10-07 05:00] VITALS: PULSE 77; RESP 20; O2SAT 100
[2024-10-07] MEDS: ALBUTEROL/IPRATROPIUM (Duoneb) RT SOL 3 ML NEBU INH (05:00)
[2024-10-07 06:02] VITALS: BP 119/82; PULSE 89; RESP 16; TEMP 36.7; O2SAT 100
== END 2024-10-07 06:05 | disposition home or self-care (01) ==
PROVIDERS: Physician Assistant; Emergency Provider Emergency Medicine; PCP Family Medicine
DX: J10.1 Influenza due to other identified influenza virus with other respiratory manifestations (principal); J10.2 Influenza due to other identified influenza virus with gastrointestinal manifestations
CPT/HCPCS: 71046; 87400; 87651; 87811; 94640; 99283; A9270